=== PATIENT | female | born 1940 | race Hispanic/Latino ===

== ENCOUNTER 2016-10-29 12:39 | Outpatient (CLI) | payer MEDICARE ==
--- NOTE | 2016-10-29 15:02 | XRay Report ---
RIGHT TIBIA AND FIBULA RADIOGRAPHS INDICATION: Cellulitis right lower extremity. COMPARISON: 05/22/2016. FINDINGS: AP and lateral right tibia and fibula radiographs demonstrate stable proximal tibial plate and screw hardware stabilizing old proximal tibial deformity with persistent fracture lucency and slight diffuse overlying soft tissue prominence/swelling. Stable old healed fibular shaft fracture. Intact imaged knee and ankle articulations. Small dorsal calcaneal spur. CONCLUSION: Proximal tibial and fibular old deformities, including proximal tibial incomplete union/malunion again noted with few other incidental findings, as above. Please correlate. Thank you for the opportunity to participate in this patient's care.
== END 2016-10-29 12:40 | disposition home or self-care (01) ==
LOC: XRAY 12:39
PROVIDERS: ATTEND Internal Medicine
DX: L03.116 Cellulitis of left lower limb (principal); S82.201P Unspecified fracture of shaft of right tibia, subsequent encounter for closed fracture with malunion; M77.31 Calcaneal spur, right foot; X58.XXXD Exposure to other specified factors, subsequent encounter

== ENCOUNTER 2017-12-09 13:22 | Emergency (ER) | payer MEDICARE ==
[2017-12-09 13:57] VITALS: BP 141/60
--- NOTE | 2017-12-09 18:10 | Emergency Department Report ---
Blank Doc - Documentation Documentation: 77-year-old female fell 9 days ago on her right side after missing a step on her deck. Patient use her right arm to break her fall and she fell on her buttock. She is unsure if she struck her right ribs. She didn't start having a right sided lateral and anterior lower rib pain until several days later. Pain is worse this inspiration and movement but improved with Tylenol prior to arrival. She denies shortness of breath, cough, fever, or bruising to ribs. She does have a small persistent bruise to her right forearm Patient does not have any tenderness or bruising to ribs with direct palpation or AP compression. Due to family concerns and history of osteoporosis a right rib series has been ordered Patient does not want pain medication at this time Midlevel to follow.
--- NOTE | 2017-12-09 20:04 | XRay Report ---
FINAL REPORT EXAM: XR RIBS UNI W PA CHEST 3+V RT HISTORY: right rib pain s/p fall 2 weeks TECHNIQUE: PA view of the chest and 3 views of the right ribs PRIORS: None. FINDINGS: There is no evidence for acute rib fracture or other bony pathologic abnormality in the right ribs. On the chest film, linear atelectasis in the left base is noted. The lungs are otherwise clear without evidence for consolidation, effusion, or pneumothorax. The cardiomediastinal silhouette is normal . IMPRESSION: No acute abnormality in the right ribs. Linear atelectasis in the left base.
--- NOTE | 2017-12-09 20:44 | Emergency Department Report ---
ED General Adult HPI - General Chief complaint: Pain General Stated complaint: POSS CRACKED (R) RIB Time Seen by Provider: 12/09/17 17:56 Source: patient Mode of arrival: Ambulatory Limitations: No Limitations - History of Present Illness Initial comments: 77-year-old female comes in complaining of right rib area pain status post fall on Saturday one week ago. Patient does admit to increased pain with movement and breath. Patient has a past medical history of hypertension in [place] plate and screws in her leg. Patient denies any fever or chills denies any shortness of breathing denies any chest pain. Good appetite no sweats -: week(s) (1) - Related Data Previous Rx's Medication Instructions Recorded Last Taken Type Clindamycin [Clindamycin CAP] 300 mg PO Q8H #21 cap 05/22/16 Unknown Rx Ibuprofen [Motrin] 600 mg PO Q8H PRN #15 tablet 05/22/16 Unknown Rx Acetaminophen [Tylenol Extra 500 mg PO Q6H #30 tablet 12/09/17 Unknown Rx Strength] Allergies Allergy/AdvReac Type Severity Reaction Status Date / Time No Known Allergies Allergy Verified 05/22/16 14:21 ED Review of Systems ROS: Stated complaint: POSS CRACKED (R) RIB Other details as noted in HPI Constitutional: denies: chills, fever Respiratory: denies: cough, shortness of breath Cardiovascular: chest pain (chest wall tenderness to palpate and with deep breath) ED Past Medical Hx - Past Medical History Hx Hypertension: Yes - Surgical History Additional Surgical History: leg plate/screws - Social History Smoking Status: Former Smoker Substance Use Type: None - Medications Home Medications: Home Medications Medication Instructions Recorded Confirmed Last Taken Type Clindamycin [Clindamycin CAP] 300 mg PO Q8H #21 cap 05/22/16 Unknown Rx Ibuprofen [Motrin] 600 mg PO Q8H PRN #15 tablet 05/22/16 Unknown Rx Acetaminophen [Tylenol Extra 500 mg PO Q6H #30 tablet 12/09/17 Unknown Rx Strength] ED Physical Exam - General Limitations: No Limitations - Head Head exam: Present: atraumatic, normocephalic - Eye Eye exam: Present: EOMI - ENT ENT exam: Present: mucous membranes moist - Respiratory Respiratory exam: Present: normal lung sounds bilaterally, chest wall tenderness (right rib tenderness under the breasts). Absent: respiratory distress - Cardiovascular Cardiovascular Exam: Present: regular rate, normal rhythm. Absent: systolic murmur, diastolic murmur, rubs, gallop - GI/Abdominal GI/Abdominal exam: Present: soft, normal bowel sounds - Neurological Exam Neurological exam: Present: alert, oriented X3 - Psychiatric Psychiatric exam: Present: normal affect, normal mood - Skin Skin exam: Present: warm, dry, intact, normal color. Absent: rash ED Course Vital Signs 12/09/17 13:51 Temperature 98.5 F Pulse Rate 51 L Respiratory 15 Rate Blood Pressure 141/60 O2 Sat by Pulse 95 Oximetry ED Medical Decision Making - Radiology Data Radiology results: report reviewed, image reviewed FINDINGS: There is no evidence for acute rib fracture or other bony pathologic abnormality in the right ribs. On the chest film, linear atelectasis in the left base is noted. The lungs are otherwise clear without evidence for consolidation, effusion, or pneumothorax. The cardiomediastinal silhouette is normal . IMPRESSION: No acute abnormality in the right ribs. Linear atelectasis in the left base. Transcribed By: [facility] Dictated By: YAA DE LA TORRE MD Electronically Authenticated By: YAA DE LA TORRE MD Signed Date/Time: 12/09/171999 DD/ 99 TD/TT: 12/09/171999 Critical care attestation.: If time is entered above; I have spent that time in minutes in the direct care of this critically ill patient, excluding procedure time. ED Disposition Clinical Impression: Costochondritis, acute Disposition: DC-01 TO HOME OR SELFCARE Is pt being admited?: No Does the pt Need Aspirin: No Condition: Stable Instructions: Costochondritis (ED) Additional Instructions: You can take Tylenol extra strength every 6-8 hours as needed for pain. If her pain persist or gets worse please follow-up with your primary care provider. Prescriptions: Acetaminophen [Tylenol Extra Strength] 500 mg PO Q6H #30 tablet Referrals: TATY MELENDEZ MD [Primary Care Provider] - 3-5 Days Forms: Accompanied Note
== END 2017-12-09 20:53 | disposition home or self-care (01) ==
LOC: ED 13:22
DX: M94.0 Chondrocostal junction syndrome [Tietze] (principal); I10 Essential (primary) hypertension; Z87.891 Personal history of nicotine dependence
CPT/HCPCS: 99283

== ENCOUNTER 2018-08-20 10:13 | Outpatient (CLI) | payer MEDICARE ==
[2018-08-20 11:08] LABS: Basophils % (Auto) 0.3 % (0.0-1.8); Eosinophils # (Auto) 0.2 K/mm3 (0.0-0.4); Hematocrit 41.7 % (30.3-42.9); Hemoglobin 14.2 gm/dl (10.1-14.3); Lymphocytes # (Auto) 2.8 K/mm3 (1.2-5.4); Mean Corpuscular HGB Conc 34 % (30-34); Mean Corpuscular Volume 89 fl (79-97); Monocytes # (Auto) 0.8 K/mm3 (0.0-0.8); Monocytes % (Auto) 9.3 % (0.0-7.3); Platelet Count 246 K/mm3 (140-440); Red Cell Distribution Width 13.4 % (13.2-15.2)
[2018-08-20 11:31] LABS: Albumin 4.5 g/dL (3.9-5); Calcium 10.1 mg/dL (8.4-10.2)
== END 2018-08-20 10:14 | disposition home or self-care (01) ==
LOC: LAB 10:13
PROVIDERS: ATTEND Internal Medicine
DX: Z00.01 Encounter for general adult medical examination with abnormal findings (principal); I10 Essential (primary) hypertension; E03.9 Hypothyroidism, unspecified
CPT/HCPCS: 36415; 80053; 82306; 82607; 85025

== ENCOUNTER 2019-01-05 09:02 | Outpatient (CLI) | payer MEDICARE ==
[2019-01-05 11:21] LABS: Chol/HDL Ratio 2.6 %
== END 2019-01-05 09:03 | disposition home or self-care (01) ==
LOC: LAB 09:02
PROVIDERS: ATTEND Internal Medicine
DX: E78.5 Hyperlipidemia, unspecified (principal); R73.03 Prediabetes; I10 Essential (primary) hypertension
CPT/HCPCS: 36415; 80061; 83036

== ENCOUNTER 2019-04-24 11:13 | Emergency (ER) | payer MEDICARE ==
--- NOTE | 2019-04-24 11:45 | Event Note ---
ED Screening Note ED Screening Note: This initial assessment/diagnostic orders/clinical plan/treatment(s) is/are subject to change based on patients health status, clinical progression and re- assessment by fellow clinical providers in the ED. Further treatment and workup at subsequent clinical providers discretion. Patient/guardian urged not to elope from the ED as their condition may be serious if not clinically assessed and managed. Initial orders include: 79yo WF states that she has experienced chest pressure and difficulty breathing x 3 days.
--- NOTE | 2019-04-24 12:21 | XRay Report ---
CHEST 2 VIEWS INDICATION / CLINICAL INFORMATION: chest pressure. COMPARISON: 12/09/2017 FINDINGS: SUPPORT DEVICES: None. HEART / MEDIASTINUM: Normal heart size. Atherosclerosis in the thoracic aorta. LUNGS / PLEURA: No significant pulmonary or pleural abnormality. No pneumothorax. ADDITIONAL FINDINGS: No significant additional findings. IMPRESSION: 1. No acute findings. Signer Name: Matt Kumar MD Signed: 04/24/2019 12:17 PM Workstation Name: [id number]
--- NOTE | 2019-04-24 12:39 | Emergency Department Report ---
<JESSE LARRY - Last Filed: 04/24/19 17:14> ED Shortness of Breath HPI - General Chief Complaint: Upper Respiratory Infection Stated Complaint: FLU LIKE SYMPTOMS Source: patient Mode of arrival: Ambulatory Limitations: No Limitations - History of Present Illness Initial Comments: 79-year-old female patient with history of hypertension, hyper lipidemia, and hypothyroidism presents with complaints of shortness of breath 3 days and right lower leg infection 1 month. Patient states she has a mild nonproductive cough and that the shortness of breath is present at rest and worsens with exertion. Denies any chest pain, hemoptysis, fever/chills/sweats, history of asthma, leg pain or swelling, recent long travel, hormone therapy, recent surgeries, or history of DVT/PE. Patient states that she has history of osteomyelitis in her right lower leg one year ago with osteoporosis. Patient states a month ago, she developed redness and mild pain in the leg with swelling. She states she inserted a needle to drain the swelling in blood was produced. She denies any purulent drainage from the wound and states the wound has improved since its onset. She denies any current pain in her legs. MD Complaint: shortness of breath -: Sudden Pain Scale: 0 - Related Data Previous Rx's Medication Instructions Recorded Last Taken Type Clindamycin [Clindamycin CAP] 300 mg PO Q8H #21 cap 05/22/16 Unknown Rx Ibuprofen [Motrin] 600 mg PO Q8H PRN #15 tablet 05/22/16 Unknown Rx Acetaminophen [Tylenol Extra 500 mg PO Q6H #30 tablet 12/09/17 Unknown Rx Strength] Amlodipine Besylate [Norvasc] 2.5 mg PO DAILY #30 tablet 04/24/19 Unknown Rx Clindamycin [Clindamycin CAP] 300 mg PO Q6H 10 Days #40 capsule 04/24/19 Unknown Rx Triamcinolone 0.1% [Kenalog 0.1% 1 applic TP TID PRN #1 tube 04/24/19 Unknown Rx CREAM] Allergies Allergy/AdvReac Type Severity Reaction Status Date / Time No Known Allergies Allergy Verified 05/22/16 14:21 ED Review of Systems Constitutional: denies: chills, fever Eyes: denies: vision change ENT: denies: throat pain Respiratory: cough, shortness of breath, SOB with exertion, SOB at rest. denies: orthopnea Cardiovascular: denies: chest pain, palpitations, edema Endocrine: no symptoms reported Gastrointestinal: denies: abdominal pain, nausea, diarrhea Genitourinary: denies: dysuria, frequency Musculoskeletal: denies: back pain Skin: rash. denies: change in color Neurological: denies: headache, weakness, paresthesias Psychiatric: denies: anxiety, depression, auditory hallucinations, visual hallucinations Hematological/Lymphatic: denies: easy bleeding, easy bruising ED Past Medical Hx - Past Medical History Previous Medical History?: Yes Hx Hypertension: Yes - Surgical History Past Surgical History?: Yes Additional Surgical History: Right leg plate/screws - Social History Smoking Status: Former Smoker Substance Use Type: None - Medications Home Medications: Home Medications Medication Instructions Recorded Confirmed Last Taken Type Clindamycin [Clindamycin CAP] 300 mg PO Q8H #21 cap 05/22/16 Unknown Rx Ibuprofen [Motrin] 600 mg PO Q8H PRN #15 tablet 05/22/16 Unknown Rx Acetaminophen [Tylenol Extra 500 mg PO Q6H #30 tablet 12/09/17 Unknown Rx Strength] Amlodipine Besylate [Norvasc] 2.5 mg PO DAILY #30 tablet 04/24/19 Unknown Rx Clindamycin [Clindamycin CAP] 300 mg PO Q6H 10 Days #40 capsule 04/24/19 Unknown Rx Triamcinolone 0.1% [Kenalog 0.1% 1 applic TP TID PRN #1 tube 04/24/19 Unknown Rx CREAM] ED Physical Exam - General Limitations: No Limitations General appearance: alert, in no apparent distress - Head Head exam: Present: atraumatic, normocephalic - Eye Eye exam: Present: normal appearance. Absent: scleral icterus - ENT ENT exam: Present: mucous membranes moist - Neck Neck exam: Present: normal inspection, full ROM. Absent: lymphadenopathy - Respiratory Respiratory exam: Present: normal lung sounds bilaterally. Absent: respiratory distress, wheezes, rales, rhonchi, chest wall tenderness, accessory muscle use, decreased breath sounds - Cardiovascular Cardiovascular Exam: Present: regular rate, normal rhythm. Absent: systolic mur mur, diastolic murmur, rubs, gallop - GI/Abdominal GI/Abdominal exam: Present: soft, normal bowel sounds. Absent: distended, tenderness - Extremities Exam Extremities exam: Present: normal inspection. Absent: pedal edema, joint swelling, calf tenderness - Back Exam Back exam: Present: full ROM - Neurological Exam Neurological exam: Present: alert, oriented X3 - Psychiatric Psychiatric exam: Present: normal affect, normal mood - Skin Skin exam: Present: warm, dry, intact, rash, erythema (approximately 3 cm round erythemic dry rash noted to proximal anterior tibia. No tenderness to palpation noted or swelling) ED Medical Decision Making - Lab Data Result diagrams: 04/24/19 12:35 04/24/19 12:07 Lab Results 04/24/19 04/24/19 04/24/19 Range/Units 12:07 12:07 12:35 WBC 9.7 (4.5-11.0) K/mm3 RBC 4.68 (3.65-5.03) M/mm3 Hgb 14.0 (10.1-14.3) gm/dl Hct 41.9 (30.3-42.9) % MCV 90 (79-97) fl MCH 30 (28-32) pg MCHC 33 (30-34) % RDW 13.3 (13.2-15.2) % Plt Count 248 (140-440) K/mm3 Lymph % (Auto) 28.7 (13.4-35.0) % Winston % (Auto) 10.1 H (0.0-7.3) % Eos % (Auto) 1.5 (0.0-4.3) % Baso % (Auto) 0.7 (0.0-1.8) % Lymph # 2.8 (1.2-5.4) K/mm3 Winston # 1.0 H (0.0-0.8) K/mm3 Eos # 0.1 (0.0-0.4) K/mm3 Baso # 0.1 (0.0-0.1) K/mm3 Seg Neutrophils % 59.0 (40.0-70.0) % Seg Neutrophils # 5.7 (1.8-7.7) K/mm3 PT (12.2-14.9) Sec. INR (0.87-1.13) APTT (24.2-36.6) Sec. D-Dimer (0-234) ng/mlDDU Sodium 136 L (137-145) mmol/L Potassium 3.8 (3.6-5.0) mmol/L Chloride 100.6 (98-107) mmol/L Carbon Dioxide 18 L (22-30) mmol/L Anion Gap 21 mmol/L BUN 9 (7-17) mg/dL Creatinine 1.1 (0.7-1.2) mg/dL Estimated GFR 48 ml/min BUN/Creatinine Ratio 8 % Glucose 113 H (65-100) mg/dL Calcium 9.6 (8.4-10.2) mg/dL Total Bilirubin 0.40 (0.1-1.2) mg/dL AST 26 (5-40) units/L ALT 22 (7-56) units/L Alkaline Phosphatase 66 (35-129) units/L Troponin T < 0.010 (0.00-0.029) ng/mL NT-Pro-B Natriuret Pep 161.8 (0-900) pg/mL Total Protein 7.9 (6.3-8.2) g/dL Albumin 4.2 (3.9-5) g/dL Albumin/Globulin Ratio 1.1 % TSH (0.270-4.200) mlU/mL Urine Color (Yellow) Urine Turbidity (Clear) Urine pH (5.0-7.0) Ur Specific [place] (1.003-1.030) Urine Protein (Negative) mg/dL Urine Glucose (UA) (Negative) mg/dL Urine Ketones (Negative) mg/dL Urine Blood (Negative) Urine Nitrite (Negative) Urine Bilirubin (Negative) Urine Urobilinogen (<2.0) mg/dL Ur Leukocyte Esterase (Negative) Urine WBC (Auto) (0.0-6.0) /HPF Urine RBC (Auto) (0.0-6.0) /HPF U Epithel Cells (Auto) (0-13.0) /HPF Urine Mucus /HPF 04/24/19 04/24/19 04/24/19 Range/Units 12:35 13:25 14:55 WBC (4.5-11.0) K/mm3 RBC (3.65-5.03) M/mm3 Hgb (10.1-14.3) gm/dl Hct (30.3-42.9) % MCV (79-97) fl MCH (28-32) pg MCHC (30-34) % RDW (13.2-15.2) % Plt Count (140-440) K/mm3 Lymph % (Auto) (13.4-35.0) % Winston % (Auto) (0.0-7.3) % Eos % (Auto) (0.0-4.3) % Baso % (Auto) (0.0-1.8) % Lymph # (1.2-5.4) K/mm3 Winston # (0.0-0.8) K/mm3 Eos # (0.0-0.4) K/mm3 Baso # (0.0-0.1) K/mm3 Seg Neutrophils % (40.0-70.0) % Seg Neutrophils # (1.8-7.7) K/mm3 PT 12.6 (12.2-14.9) Sec. INR 0.95 (0.87-1.13) APTT 27.1 (24.2-36.6) Sec. D-Dimer (0-234) ng/mlDDU Sodium (137-145) mmol/L Potassium (3.6-5.0) mmol/L Chloride (98-107) mmol/L Carbon Dioxide (22-30) mmol/L Anion Gap mmol/L BUN (7-17) mg/dL Creatinine (0.7-1.2) mg/dL Estimated GFR ml/min BUN/Creatinine Ratio % Glucose (65-100) mg/dL Calcium (8.4-10.2) mg/dL Total Bilirubin (0.1-1.2) mg/dL AST (5-40) units/L ALT (7-56) units/L Alkaline Phosphatase (35-129) units/L Troponin T (0.00-0.029) ng/mL NT-Pro-B Natriuret Pep (0-900) pg/mL Total Protein (6.3-8.2) g/dL Albumin (3.9-5) g/dL Albumin/Globulin Ratio % TSH 3.060 (0.270-4.200) mlU/mL Urine Color Yellow (Yellow) Urine Turbidity Clear (Clear) Urine pH 5.0 (5.0-7.0) Ur Specific [place] 1.008 (1.003-1.030) Urine Protein <15 mg/dl (Negative) mg/dL Urine Glucose (UA) Neg (Negative) mg/dL Urine Ketones Neg (Negative) mg/dL Urine Blood Neg (Negative) Urine Nitrite Neg (Negative) Urine Bilirubin Neg (Negative) Urine Urobilinogen < 2.0 (<2.0) mg/dL Ur Leukocyte Esterase Sm (Negative) Urine WBC (Auto) 1.0 (0.0-6.0) /HPF Urine RBC (Auto) 4.0 (0.0-6.0) /HPF U Epithel Cells (Auto) < 1.0 (0-13.0) /HPF Urine Mucus Few /HPF 04/24/19 Range/Units 14:59 WBC (4.5-11.0) K/mm3 RBC (3.65-5.03) M/mm3 Hgb (10.1-14.3) gm/dl Hct (30.3-42.9) % MCV (79-97) fl MCH (28-32) pg MCHC (30-34) % RDW (13.2-15.2) % Plt Count (140-440) K/mm3 Lymph % (Auto) (13.4-35.0) % Winston % (Auto) (0.0-7.3) % Eos % (Auto) (0.0-4.3) % Baso % (Auto) (0.0-1.8) % Lymph # (1.2-5.4) K/mm3 Winston # (0.0-0.8) K/mm3 Eos # (0.0-0.4) K/mm3 Baso # (0.0-0.1) K/mm3 Seg Neutrophils % (40.0-70.0) % Seg Neutrophils # (1.8-7.7) K/mm3 PT (12.2-14.9) Sec. INR (0.87-1.13) APTT (24.2-36.6) Sec. D-Dimer 560.67 H (0-234) ng/mlDDU Sodium (137-145) mmol/L Potassium (3.6-5.0) mmol/L Chloride (98-107) mmol/L Carbon Dioxide (22-30) mmol/L Anion Gap mmol/L BUN (7-17) mg/dL Creatinine (0.7-1.2) mg/dL Estimated GFR ml/min BUN/Creatinine Ratio % Glucose (65-100) mg/dL Calcium (8.4-10.2) mg/dL Total Bilirubin (0.1-1.2) mg/dL AST (5-40) units/L ALT (7-56) units/L Alkaline Phosphatase (35-129) units/L Troponin T (0.00-0.029) ng/mL NT-Pro-B Natriuret Pep (0-900) pg/mL Total Protein (6.3-8.2) g/dL Albumin (3.9-5) g/dL Albumin/Globulin Ratio % TSH (0.270-4.200) mlU/mL Urine Color (Yellow) Urine Turbidity (Clear) Urine pH (5.0-7.0) Ur Specific [place] (1.003-1.030) Urine Protein (Negative) mg/dL Urine Glucose (UA) (Negative) mg/dL Urine Ketones (Negative) mg/dL Urine Blood (Negative) Urine Nitrite (Negative) Urine Bilirubin (Negative) Urine Urobilinogen (<2.0) mg/dL Ur Leukocyte Esterase (Negative) Urine WBC (Auto) (0.0-6.0) /HPF Urine RBC (Auto) (0.0-6.0) /HPF U Epithel Cells (Auto) (0-13.0) /HPF Urine Mucus /HPF - EKG Data EKG shows normal: sinus rhythm Rate: normal - EKG Data Interpretation: nonspecific ST-T wave ashlyn - Radiology Data Radiology results: report reviewed CHEST 2 VIEWS INDICATION / CLINICAL INFORMATION: chest pressure. COMPARISON: 12/09/2017 FINDINGS: SUPPORT DEVICES: None. HEART / MEDIASTINUM: Normal heart size. Atherosclerosis in the thoracic aorta. LUNGS / PLEURA: No significant pulmonary or pleural abnormality. No pneumothorax. ADDITIONAL FINDINGS: No significant additional findings. IMPRESSION: 1. No acute findings. CTA CHEST WITH IV CONTRAST INDICATION: Shortness of breath, elevated d-dimer. TECHNIQUE: Axial CT images were obtained through the chest after injection of 100 mL Omnipaque 350 IV contrast. 3 plane MIP reconstructions were produced. All CT scans at this location are performed using CT dose reduction for ALARA by means of automated exposure control. COMPARISON: None available. FINDINGS: Pulmonary Arteries: No pulmonary emboli. Lungs: There is a 6 mm nodule in the medial right upper lobe. Trachea and Bronchi: No significant abnormality. Heart and Pericardium: Mild coronary atherosclerotic calcifications. Vasculature: Atherosclerotic but not aneurysmal thoracic aorta. Lymphatics: No lymphadenopathy. Additional Findings: None. Upper Abdomen: There is a moderate hiatal hernia. The visualized upper abdominal organs demonstrate no acute findings. Skeletal Structures: No significant osseous abnormality. IMPRESSION: 1. No CT evidence for pulmonary embolism. 2. No acute findings. 3. Incidental pulmonary nodule measuring 7 mm located in the medial right upper lobe. See below for follow-up recommendation. Nodule size >6-8 mm Low-Risk Patient: initial follow-up CT at 6-12 months, then at 18-24 months if no change High risk Patient: initial follow-up CT at 3-6 months, then at 9-12 and 24 months if no change Low-Risk Patient - minimal or absent history of smoking and of other known risk factors. High-Risk Patient - history of smoking or of other known risk factors. * Average of length and width Signer Name: Matt Kumar MD Signed: 04/24/2019 5:00 PM Workstation Name: [id number] RIGHT TIBIA/FIBULA 2 VIEWS INDICATION / CLINICAL INFORMATION: overlying infx, hx of osteomyelitis in area COMPARISON: Tibia/fibular radiograph 10/29/2016 FINDINGS: BONES / JOINT(S): Chronic fracture deformity of the proximal tibia and fibula, status post internal fixation of the proximal tibia with plate and screws. There is no evidence of hardware loosening or failure. The appearance is not significantly changed compared with prior radiograph in 2017. SOFT TISSUES: Mild soft tissue swelling of the calf. ADDITIONAL FINDINGS: None. IMPRESSION: 1. Unchanged chronic fracture deformities of the tibia and fibula status post internal fixation of the proximal tibia. The radiographic appearance is not significantly changed from prior examination. While there is no obvious osseous erosion, osteomyelitis is difficult to exclude by plain radiograph. - Medical Decision Making 79-year-old female patient here with complaints of shortness of breath for the past few days and right lower leg skin infection 1 month. Patient has history of hypothyroidism, HLD, and hypertension. She states she has been out of one of 2 of her hypertension meds for the past 2 days. He denies any chest pain cough or fever. ABC's are normal. CTA chest negative for PE or pneumonia. CTA chest does show a right lung nodulepatient states this has been present for years and is being followed by her primary care doctor. Patient has remained 97-100% on room air since being here in the ED. BMP and troponin are also normal. X-ray of the tibia reads unable to fully rule out osteomyelitis due to hardware and leg, however osteomyelitis at low suspicion due to lack of pain, lack of fever, and patient having a normal white count. We'll treat erythema of leg for cellulitis. Recommend patient follows up with her primary care divider or triage nurse for her shortness of breath. Discussed very strict return precautions in detail with patient and patient's daughter who state understanding. ED Disposition Clinical Impression: Shortness of breath, Dyshidrotic eczema, Cellulitis of right leg, Pulmonary nodule Hypertension Qualifiers: Hypertension type: essential hypertension Qualified Code(s): I10 - Essential (primary) hypertension Disposition: TO HOME OR SELFCARE Is pt being admited?: No Condition: Stable Instructions: Cellulitis (ED), Dyspnea (ED), Hypertension (ED) Additional Instructions: Follow-up with your primary care doctor in the next 2-3 days. Return to the emergency room immediately for any new or worsening symptoms. Please take medications as prescribed. Prescriptions: Clindamycin [Clindamycin CAP] 300 mg PO Q6H 10 Days #40 capsule Triamcinolone 0.1% [Kenalog 0.1% CREAM] 1 applic TP TID PRN #1 tube PRN Reason: Itching Amlodipine Besylate [Norvasc] 2.5 mg PO DAILY #30 tablet Referrals: JERSEY BARNES MD [Staff Physician] - 2-3 Days PRIMARY CARE, [Primary Care Provider] - 2-3 Days Print Language: MARSHALLESE <WARREN ABREU - Last Filed: 04/25/19 02:02> ED Review of Systems ROS: Stated complaint: FLU LIKE SYMPTOMS Other details as noted in HPI ED Course Vital Signs 04/24/19 04/24/19 04/24/19 11:34 13:06 15:33 Temperature 97.5 F L Pulse Rate 103 H 89 82 Respiratory 20 20 Rate Blood Pressure 158/100 Blood Pressure 169/91 176/123 [Left] O2 Sat by Pulse 97 96 97 Oximetry 04/24/19 04/24/19 04/24/19 15:34 17:01 17:45 Temperature Pulse Rate 80 82 90 Respiratory 16 20 Rate Blood Pressure 178/123 156/111 Blood Pressure 172/83 156/111 [Left] O2 Sat by Pulse 100 100 Oximetry 04/24/19 18:49 Temperature Pulse Rate 91 H Respiratory 18 Rate Blood Pressure Blood Pressure 144/73 [Left] O2 Sat by Pulse 100 Oximetry ED Medical Decision Making - Lab Data Result diagrams: 04/24/19 12:35 04/24/19 12:07 Vital Signs 04/24/19 04/24/19 04/24/19 11:34 13:06 15:33 Temperature 97.5 F L Pulse Rate 103 H 89 82 Respiratory 20 20 Rate Blood Pressure 158/100 Blood Pressure 169/91 176/123 [Left] O2 Sat by Pulse 97 96 97 Oximetry 04/24/19 04/24/19 04/24/19 15:34 17:01 17:45 Temperature Pulse Rate 80 82 90 Respiratory 16 20 Rate Blood Pressure 178/123 156/111 Blood Pressure 172/83 156/111 [Left] O2 Sat by Pulse 100 100 Oximetry 04/24/19 18:49 Temperature Pulse Rate 91 H Respiratory 18 Rate Blood Pressure Blood Pressure 144/73 [Left] O2 Sat by Pulse 100 Oximetry - Medical Decision Making Signed out by Jesse Larry PA-C pending improvement of blood pressure After second dose of hydralazine patient's blood pressure improved, patient states that the medication she ran out of his amlodipine 2.5 mg daily, will refill this medication for patient. CTA of the chest shows pulmonary nodule otherwise stable patient states that she has had this chronically advised patient that she would need to have repeat testing in 6 months patient verbalized understanding. advised pt to Follow-up with your primary care doctor in the next 2-3 days. Return to the emergency room immediately for any new or worsening symptoms. Please take medications as prescribed. Critical care attestation.: If time is entered above; I have spent that time in minutes in the direct care of this critically ill patient, excluding procedure time. ED Disposition Is pt being admited?: No Does the pt Need Aspirin: No Time of Disposition: 18:52
[2019-04-24 13:13] LABS: Basophils # (Auto) 0.1 K/mm3 (0.0-0.1); Basophils % (Auto) 0.7 % (0.0-1.8); Eosinophils # (Auto) 0.1 K/mm3 (0.0-0.4); Eosinophils % (Auto) 1.5 % (0.0-4.3); Hematocrit 41.9 % (30.3-42.9); Lymphocytes # (Auto) 2.8 K/mm3 (1.2-5.4); Lymphocytes % (Auto) 28.7 % (13.4-35.0); Mean Corpuscular HGB Conc 33 % (30-34); Mean Corpuscular Volume 90 fl (79-97); Monocytes % (Auto) 10.1 % (0.0-7.3); Platelet Count 248 K/mm3 (140-440); Red Blood Count 4.68 M/mm3 (3.65-5.03); Red Cell Distribution Width 13.3 % (13.2-15.2)
[2019-04-24 13:14] LABS: INR 0.95 (0.87-1.13)
[2019-04-24 13:15] LABS: Partial Thromboplastin Time 27.1 Sec. (24.2-36.6)
[2019-04-24 13:21] LABS: Alanine Aminotransferase 22 units/L (7-56); Albumin 4.2 g/dL (3.9-5); BUN/Creatinine Ratio 8; Blood Urea Nitrogen 9 mg/dL (7-17); Calcium 9.6 mg/dL (8.4-10.2); Hemolysis Index 7
--- NOTE | 2019-04-24 13:51 | XRay Report ---
RIGHT TIBIA/FIBULA 2 VIEWS INDICATION / CLINICAL INFORMATION: overlying infx, hx of osteomyelitis in area COMPARISON: Tibia/fibular radiograph 10/29/2016 FINDINGS: BONES / JOINT(S): Chronic fracture deformity of the proximal tibia and fibula, status post internal f ixation of the proximal tibia with plate and screws. There is no evidence of hardware loosening or fa ilure. The appearance is not significantly changed compared with prior radiograph in 2017. SOFT TISSUES: Mild soft tissue swelling of the calf. ADDITIONAL FINDINGS: None. IMPRESSION: 1. Unchanged chronic fracture deformities of the tibia and fibula status post internal fixation of th e proximal tibia. The radiographic appearance is not significantly changed from prior examination. Wh ile there is no obvious osseous erosion, osteomyelitis is difficult to exclude by plain radiograph. Signer Name: Tayler Cruz MD Signed: 04/24/2019 1:47 PM Workstation Name: [id number]
[2019-04-24] MEDS ORDERED: SODIUM CHLORIDE 0.9% 1000 ML 1,000 ML IV ONE (15:00)
[2019-04-24 15:05] LABS: Bilirubin,Urine NEG (Negative); Blood,Urine NEG (Negative); Color,Urine Yellow (Yellow); Mucus,Urine FEW /HPF; Protein,Urine <15 mg/dL mg/dL (Negative); Urobilinogen,Urine < 2.0 mg/dL (<2.0)
[2019-04-24] MEDS ORDERED: hydrALAZINE 25 MG TAB PO ONE ×2 (15:21→17:25)
--- NOTE | 2019-04-24 17:04 | Cat Scan Report ---
CTA CHEST WITH IV CONTRAST INDICATION: Shortness of breath, elevated d-dimer. TECHNIQUE: Axial CT images were obtained through the chest after injection of 100 mL Omnipaque 350 IV contrast. 3 plane MIP reconstructions were produced. All CT scans at this location are performed using CT dose reduction for ALARA by means of automated exposure control. COMPARISON: None available. FINDINGS: Pulmonary Arteries: No pulmonary emboli. Lungs: There is a 6 mm nodule in the medial right upper lobe. Trachea and Bronchi: No significant abnormality. Heart and Pericardium: Mild coronary atherosclerotic calcifications. Vasculature: Atherosclerotic but not aneurysmal thoracic aorta. Lymphatics: No lymphadenopathy. Additional Findings: None. Upper Abdomen: There is a moderate hiatal hernia. The visualized upper abdominal organs demonstrate n o acute findings. Skeletal Structures: No significant osseous abnormality. IMPRESSION: 1. No CT evidence for pulmonary embolism. 2. No acute findings. 3. Incidental pulmonary nodule measuring 7 mm located in the medial right upper lobe. See below for f ollow-up recommendation. Nodule size >6-8 mm Low-Risk Patient: initial follow-up CT at 6-12 months, then at 18-24 months if no change High risk Patient: initial follow-up CT at 3-6 months, then at 9-12 and 24 months if no change Low-Risk Patient - minimal or absent history of smoking and of other known risk factors. High-Risk Patient - history of smoking or of other known risk factors. * Average of length and width Signer Name: Matt Kumar MD Signed: 04/24/2019 5:00 PM Workstation Name: [id number]
[2019-04-24 18:50] VITALS: BP 144/73
== END 2019-04-24 19:04 | disposition home or self-care (01) ==
LOC: ED 11:13
DX: L30.1 Dyshidrosis [pompholyx] (principal); J98.4 Other disorders of lung; L03.115 Cellulitis of right lower limb; I10 Essential (primary) hypertension; Z87.891 Personal history of nicotine dependence
CPT/HCPCS: 36415; 71046; 71275; 73590; 80053; 81001; 83880; 84443; 84484; 85025; 85379; 85610; 85730; 93005; 93010; 99285; J7030; Q9967